=== PATIENT | female | born 1955 | race Caucasian/White ===

== ENCOUNTER 2016-11-28 08:13 | Day surgery (SDC) | payer OTHER ==
[~2016-11-28] VITALS: Ht 162.6 cm; Wt 68.0 kg
[~2016-11-28 08:13] MED LIST: ADVIL200 MG PO; AMLODIPINE BES2.5 MG PO; ASPIRIN E.C.81 M1 PO; DICYCLOMINE HCL20 MG PO; FENOFIBRATE160 M1 PO; IMDUR PO; LEVOTHYROXINE75 MCG PO; LISINOPRIL20 MG PO; LOTREL; ONE DAILY FOR1 EAC1 PO; OXYBUTYNIN CHLOR5 M1 PO; SYNTHROID; TOPROL XL6.25 MG PO; Zocor PO
[2016-11-28 09:03] VITALS: BP 112/69
[2016-11-28] MEDS ORDERED: NORCO 5/3251 TABLET PO (13:51)
[2016-11-28 17:10] VITALS: BP 131/66
== END 2016-11-28 17:30 | disposition home or self-care (01) ==
LOC: SDC 08:13
PROC: 07BH0ZX Excision of Right Inguinal Lymphatic, Open Approach, Diagnostic (ICD-10-PCS; principal; 2016-11-28)
DX: C77.4 Secondary and unspecified malignant neoplasm of inguinal and lower limb lymph nodes (principal); I25.10 Atherosclerotic heart disease of native coronary artery without angina pectoris; K21.9 Gastro-esophageal reflux disease without esophagitis; I10 Essential (primary) hypertension; E78.00 Pure hypercholesterolemia, unspecified; I73.9 Peripheral vascular disease, unspecified; E03.9 Hypothyroidism, unspecified; Z79.82 Long term (current) use of aspirin; Z87.891 Personal history of nicotine dependence; Z88.2 Allergy status to sulfonamides; Z95.0 Presence of cardiac pacemaker; I25.2 Old myocardial infarction; Z86.73 Personal history of transient ischemic attack (TIA), and cerebral infarction without residual deficits
CPT/HCPCS: 88305; J0690; J1170; J2250; J3010

== ENCOUNTER → 2017-01-09 | Outpatient (CLI) | payer OTHER ==
[~2017-01-09] VITALS: Ht 161.3 cm; Wt 66.4 kg
[~2017-01-09] MED LIST changes: +ASPIR 8181 M1 PO; +NORCO 5/3251 TABLET PO; +ONE DAILY FOR1 EAC3 PO
== END | disposition home or self-care (01) ==
LOC: AMB 12:59
DX: D01.3 Carcinoma in situ of anus and anal canal (principal); C77.4 Secondary and unspecified malignant neoplasm of inguinal and lower limb lymph nodes; I25.10 Atherosclerotic heart disease of native coronary artery without angina pectoris; K21.9 Gastro-esophageal reflux disease without esophagitis; I10 Essential (primary) hypertension; E78.5 Hyperlipidemia, unspecified; E03.9 Hypothyroidism, unspecified; I73.9 Peripheral vascular disease, unspecified; Z87.891 Personal history of nicotine dependence; Z79.82 Long term (current) use of aspirin; Z82.49 Family history of ischemic heart disease and other diseases of the circulatory system; Z80.49 Family history of malignant neoplasm of other genital organs; Z80.3 Family history of malignant neoplasm of breast; Z83.3 Family history of diabetes mellitus; Z80.1 Family history of malignant neoplasm of trachea, bronchus and lung; Z82.5 Family history of asthma and other chronic lower respiratory diseases; Z88.2 Allergy status to sulfonamides; Z88.6 Allergy status to analgesic agent; Z88.8 Allergy status to other drugs, medicaments and biological substances
CPT/HCPCS: 88305; 88342 TC; J2405; J2765; J3010

== ENCOUNTER 2017-02-04 22:43 | Inpatient (IN) | payer OTHER ==
[~2017-02-04] VITALS: Ht 162.6 cm; Wt 74.3 kg
[2017-02-04 23:52] LABS: HEMATOCRIT 24.1 % (36.0-46.0); MCHC 34.9 G/DL (30.0-36.0); MCV 88.9 FL (83-99); RBC DIS.WIDTH-CV 11.7 % (11.8-14.6); RBC DIS.WIDTH-SD 37.6 % (39-53); RED BLOOD COUNT 2.71 M/uL (3.80-5.20)
[2017-02-04 23:54] LABS: WHITE BLOOD COUNT 1.3 K/uL (4.1-10.2)
[2017-02-04 23:55] LABS: CHLORIDE 104 mEq/L (99-109); POTASSIUM 4.4 mEq/L (3.7-5.4); SODIUM 136 mEq/L (136-147)
[2017-02-04 23:58] LABS: GLUCOSE 76 mg/dL (70-99)
[2017-02-04 23:59] LABS: ANION GAP 7 MEQ/L (2-14)
[2017-02-05] VITALS (10 sets, daily range): BP systolic 87–127; BP diastolic 44–65
[2017-02-05] LABS: TOTAL BILIRUBIN 0.8 mg/dL (0.0-1.0)
[2017-02-05 00:01] LABS: ALKALINE PHOSPHATASE 68 IU/L (3-129); GFR ESTIMATE (CALCULATED) 38 mL/min/
[2017-02-05 00:02] LABS: UREA NITROGEN (BUN) 21 mg/dL (9-23)
[2017-02-05 00:42] LABS: ABS NEUTROPHIL COUNT 0.9; BAND NEUTROPHILS 1.7 % (0-8.0); EOSINOPHIL ABS CT 0.1; EOSINOPHILS 4.4 % (0-5.0); INSTRUMENT ABS NEUTROPHIL CT 0.9 K/uL; LYMPHOCYTES 24.6 % (15.0-45.0); MEAN PLAT.VOLUME 9.6 uM^3 (9.5-12.4); PLAT.SUFFICIENCY DECREASED; SEG.NEUTROPHILS 68.4 % (46.0-76.0)
[2017-02-05 00:43] LABS: PLATELET COUNT 66 K/uL (156-360)
[2017-02-05 00:54] LABS: ADD MIUA? YES; BILIRUBIN NEGATIVE; BLOOD MODERATE; COLOR YELLOW ((YELLOW)); GLUCOSE (STRIP) NEGATIVE; KETONES NEGATIVE; LEUKOCYTES MODERATE; NITRITE NEGATIVE; PROTEIN (STRIP) NEGATIVE; SPECIFIC GRAVITY 1.011 (1.000-1.030); UROBILINOGEN 0.2 MG/DL (0.2-1.0)
[2017-02-05 01:01] LABS: BACTERIA RARE /HPF; EPITHELIAL CELLS RARE /HPF; MUCUS NONE SEEN /LPF; RED BLOOD CELLS 0-5 /HPF (0-5); UCUL ADDED? NO
[2017-02-05 02:56] LABS: CHLORIDE 106 mEq/L (99-109); POTASSIUM 4.4 mEq/L (3.7-5.4); SODIUM 137 mEq/L (136-147)
[2017-02-05 02:58] LABS: GLUCOSE 73 mg/dL (70-99)
[2017-02-05 02:59] LABS: ANION GAP 9 MEQ/L (2-14)
[2017-02-05 03:01] LABS: GFR ESTIMATE (CALCULATED) 41 mL/min/
[2017-02-05 03:02] LABS: UREA NITROGEN (BUN) 19 mg/dL (9-23)
[2017-02-05 10:02] LABS: METH RESISTANT S AUREUS PCR NEGATIVE (NEGATIVE)
[2017-02-05 10:07] LABS: PROBE CHECK PASS; SPECIMEN PROCESSING CONTROL PASS
[2017-02-05] MEDS ORDERED: ONDANSETRON HCL8 MG PO (15:50)
[2017-02-05] MEDS ORDERED: LORAZEPAM0.5 MG PO (15:51)
[2017-02-05] MEDS ORDERED: OXYCODONE HCL5 MG PO (15:52)
[2017-02-05] MEDS ORDERED: DIPHENOXYLATE/1 EACH PO (15:52)
[2017-02-06] VITALS: BP 115/66
[2017-02-06 04:00] VITALS: BP 106/48
[2017-02-06 05:53] LABS: ANION GAP 9 MEQ/L (2-14); CHLORIDE 108 MEQ/L (99-109); GFR ESTIMATE (CALCULATED) 49 mL/min/; GLUCOSE 69 mg/dL (70-99); POTASSIUM 3.9 MEQ/L (3.7-5.4); SAMPLE HEMOLYSIS CHECK 0; SAMPLE ICTERIC CHECK 0; SAMPLE LIPEMIA CHECK 0; SODIUM 138 MEQ/L (136-147); UREA NITROGEN (BUN) 15 mg/dL (9-23)
[2017-02-06 06:19] LABS: HEMATOCRIT 21.6 % (36.0-46.0); IMM.PLATELET FRACTION 2.6 (1-7); MCH 32.2 PG (29.0-34.0); MCHC 36.6 G/DL (30.0-36.0); MCV 88.2 FL (83-99); PLATELET COUNT 47 K/uL (156-360); RBC DIS.WIDTH-CV 11.8 % (11.8-14.6); RBC DIS.WIDTH-SD 38.2 % (39-53); RED BLOOD COUNT 2.45 M/uL (3.80-5.20)
[2017-02-06 06:22] LABS: WHITE BLOOD COUNT 0.9 K/uL (4.1-10.2)
[2017-02-06 06:51] LABS: ANISOCYTOSIS 1+; HEMATOLOGY COMMENT 1 DIFF ON BUFFY COAT; PLAT.SUFFICIENCY DECREASED
[2017-02-06 08:00] VITALS: BP 94/66
[2017-02-06 09:21] LABS: ABS NEUTROPHIL COUNT 0.4; EOSINOPHIL ABS CT 0.1; INSTRUMENT ABS NEUTROPHIL CT 0.4 K/uL
[2017-02-06 12:00] VITALS: BP 101/52
[2017-02-06 18:12] VITALS: BP 131/63
[2017-02-06 23:41] VITALS: BP 129/68
[2017-02-07 04:02] VITALS: BP 127/63
[2017-02-07 06:45] LABS: MCHC 36.5 G/DL (30.0-36.0); MCV 87.7 FL (83-99); RBC DIS.WIDTH-CV 11.9 % (11.8-14.6); RBC DIS.WIDTH-SD 38.5 % (39-53); RED BLOOD COUNT 2.28 M/uL (3.80-5.20)
[2017-02-07 06:50] LABS: WHITE BLOOD COUNT 0.6 K/uL (4.1-10.2)
[2017-02-07 06:59] LABS: ANION GAP 10 MEQ/L (2-14); CHLORIDE 111 MEQ/L (99-109); GFR ESTIMATE (CALCULATED) > 59 mL/min/; GLUCOSE 40 mg/dL (70-99); POTASSIUM 3.7 MEQ/L (3.7-5.4); SAMPLE HEMOLYSIS CHECK 0; SAMPLE ICTERIC CHECK 0; SAMPLE LIPEMIA CHECK 0; SODIUM 142 MEQ/L (136-147); UREA NITROGEN (BUN) 14 mg/dL (9-23)
[2017-02-07 07:07] LABS: IMM.PLATELET FRACTION 2.2 (1-7); PLAT.SUFFICIENCY DECREASED; PLATELET COUNT 39 K/uL (156-360)
[2017-02-07 08:19] LABS: POINT-OF-CARE METER ID UU13113725
[2017-02-07 08:28] VITALS: BP 124/77
[2017-02-07 09:23] LABS: POINT-OF-CARE METER ID UU13113725
[2017-02-07 18:07] VITALS: BP 145/77
[2017-02-07 20:04] VITALS: BP 121/74
[2017-02-08] VITALS (10 sets, daily range): BP systolic 114–134; BP diastolic 55–71
[2017-02-08 07:04] LABS: ALKALINE PHOSPHATASE 46 IU/L (3-129); ANION GAP 9 MEQ/L (2-14); CHLORIDE 107 MEQ/L (99-109); GFR ESTIMATE (CALCULATED) > 59 mL/min/; SAMPLE HEMOLYSIS CHECK 0; SAMPLE ICTERIC CHECK 0; SAMPLE LIPEMIA CHECK 0; SODIUM 136 MEQ/L (136-147); UREA NITROGEN (BUN) 11 mg/dL (9-23)
[2017-02-08 07:05] LABS: GLUCOSE 84 mg/dL (70-99); TOTAL BILIRUBIN 0.6 MG/DL (0.0-1.0)
[2017-02-08 07:06] LABS: HEMATOCRIT 23.5 % (36.0-46.0); MCH 31.8 PG (29.0-34.0); MCHC 38.7 G/DL (30.0-36.0); RBC DIS.WIDTH-CV 11.7 % (11.8-14.6)
[2017-02-08 07:07] LABS: MCV 82.2 FL (83-99); RED BLOOD COUNT 2.86 M/uL (3.80-5.20); WHITE BLOOD COUNT 0.9 K/uL (4.1-10.2)
[2017-02-08 08:37] LABS: EOSINOPHIL (%) 4.7 % (0-5); HEMATOLOGY COMMENT 1 SMEAR COMPATIBLE; IMM.PLATELET FRACTION 3.4 (1-7); IMMATURE GRANULOCYTE (%) 2.3 % (0.0-0.7); INSTRUMENT ABS NEUTROPHIL CT 0.4 K/uL; LYMPHOCYTE COUNT 0.4 K/uL (1.0-2.8); MEAN PLAT.VOLUME 10.8 uM^3 (9.5-12.4); MONOCYTE (%) 8.1 % (3-12); MONOCYTE COUNT 0.1 K/uL (0-0.8); NEUTROPHIL (%) 44.2 % (45-76); NEUTROPHIL COUNT 0.4 K/uL (1.8-6.4); PLAT.SUFFICIENCY DECREASED
[2017-02-08 08:46] LABS: PLATELET COUNT 28 K/uL (156-360)
[2017-02-09 04:10] VITALS: BP 123/65
[2017-02-09 06:51] LABS: HEMATOCRIT 23.2 % (36.0-46.0); IMM.PLATELET FRACTION 2.9 (1-7); MCH 31.5 PG (29.0-34.0); MCHC 37.1 G/DL (30.0-36.0); MEAN PLAT.VOLUME 9.6 uM^3 (9.5-12.4); PLAT.SUFFICIENCY DECREASED; RBC DIS.WIDTH-CV 12.1 % (11.8-14.6); RBC DIS.WIDTH-SD 37.3 % (39-53); RED BLOOD COUNT 2.73 M/uL (3.80-5.20)
[2017-02-09 06:52] LABS: PLATELET COUNT 22 K/uL (156-360); WHITE BLOOD COUNT 0.8 K/uL (4.1-10.2)
[2017-02-09 07:43] LABS: ANION GAP 7 MEQ/L (2-14); CHLORIDE 111 MEQ/L (99-109); GFR ESTIMATE (CALCULATED) 49 mL/min/; GLUCOSE 84 mg/dL (70-99); MAGNESIUM 1.6 mg/dl (1.3-2.7); POTASSIUM 3.6 MEQ/L (3.7-5.4); SAMPLE HEMOLYSIS CHECK 0; SAMPLE ICTERIC CHECK 0; SAMPLE LIPEMIA CHECK 0; SODIUM 141 MEQ/L (136-147); UREA NITROGEN (BUN) 7 mg/dL (9-23)
[2017-02-09 07:45] VITALS: BP 136/77
[2017-02-09 11:12] VITALS: BP 122/72
[2017-02-09 15:40] VITALS: BP 121/62
[2017-02-09 19:17] VITALS: BP 144/69
[2017-02-09 23:17] VITALS: BP 125/63
[2017-02-10 01:42] LABS: C DIFF TOXIN NEGATIVE (NEGATIVE)
[2017-02-10 01:43] LABS: PROBE CHECK PASS; SPECIMEN PROCESSING CONTROL PASS
[2017-02-10 07:00] LABS: ANION GAP 8 MEQ/L (2-14); CHLORIDE 112 MEQ/L (99-109); GFR ESTIMATE (CALCULATED) 44 mL/min/; GLUCOSE 84 mg/dL (70-99); POTASSIUM 3.3 MEQ/L (3.7-5.4); SAMPLE HEMOLYSIS CHECK 0; SAMPLE ICTERIC CHECK 0; SAMPLE LIPEMIA CHECK 0; SODIUM 140 MEQ/L (136-147); UREA NITROGEN (BUN) 4 mg/dL (9-23)
[2017-02-10 07:09] LABS: HEMATOCRIT 23.2 % (36.0-46.0); MCH 31.8 PG (29.0-34.0); MCHC 37.5 G/DL (30.0-36.0); MCV 84.7 FL (83-99); RBC DIS.WIDTH-CV 12.4 % (11.8-14.6); RBC DIS.WIDTH-SD 37.8 % (39-53); RED BLOOD COUNT 2.74 M/uL (3.80-5.20)
[2017-02-10 07:19] LABS: WHITE BLOOD COUNT 0.8 K/uL (4.1-10.2)
[2017-02-10 07:29] VITALS: BP 111/56
[2017-02-10 08:12] LABS: MEAN PLAT.VOLUME 10.6 uM^3 (9.5-12.4)
[2017-02-10 08:53] LABS: PLATELET COUNT 17 K/uL (156-360)
[2017-02-10 12:24] VITALS: BP 111/56
[2017-02-10 16:02] VITALS: BP 141/69
[2017-02-10 20:50] VITALS: BP 158/86
[2017-02-11 00:50] VITALS: BP 158/86
[2017-02-11 04:05] VITALS: BP 128/70
[2017-02-11 06:55] VITALS: BP 131/62
[2017-02-11 10:27] LABS: HEMATOCRIT 23.3 % (36.0-46.0); MCH 31.6 PG (29.0-34.0); MCHC 36.5 G/DL (30.0-36.0); MCV 86.6 FL (83-99); RBC DIS.WIDTH-CV 12.6 % (11.8-14.6); RBC DIS.WIDTH-SD 39.8 % (39-53); RED BLOOD COUNT 2.69 M/uL (3.80-5.20)
[2017-02-11 10:29] LABS: WHITE BLOOD COUNT 0.9 K/uL (4.1-10.2)
[2017-02-11 10:43] LABS: ANION GAP 6 MEQ/L (2-14); CHLORIDE 110 MEQ/L (99-109); GFR ESTIMATE (CALCULATED) 44 mL/min/; GLUCOSE 81 mg/dL (70-99); POTASSIUM 3.5 MEQ/L (3.7-5.4); SAMPLE HEMOLYSIS CHECK 0; SAMPLE ICTERIC CHECK 0; SAMPLE LIPEMIA CHECK 0; SODIUM 139 MEQ/L (136-147); UREA NITROGEN (BUN) 3 mg/dL (9-23)
[2017-02-11 10:51] LABS: EOSINOPHIL (%) 10.2 % (0-5); EOSINOPHIL COUNT 0.1 K/uL (0-0.3); IMM.PLATELET FRACTION 7.2 (1-7); INSTRUMENT ABS NEUTROPHIL CT 0.2 K/uL; LYMPHOCYTE COUNT 0.4 K/uL (1.0-2.8); MEAN PLAT.VOLUME 11.9 uM^3 (9.5-12.4); MONOCYTE COUNT 0.2 K/uL (0-0.8); NEUTROPHIL (%) 25.1 % (45-76); NEUTROPHIL COUNT 0.2 K/uL (1.8-6.4); PLAT.SUFFICIENCY DECREASED
[2017-02-11 10:56] LABS: PLATELET COUNT 20 K/uL (156-360)
[2017-02-11 15:15] VITALS: BP 135/67
[2017-02-11 20:13] LABS: POINT-OF-CARE METER ID UU13113725
[2017-02-11 20:23] VITALS: BP 139/69
[2017-02-11 22:28] VITALS: BP 140/66
[2017-02-12 01:15] LABS: POINT-OF-CARE METER ID UU13113725
[2017-02-12 03:35] VITALS: BP 117/57
[2017-02-12 06:08] LABS: POINT-OF-CARE METER ID UU13113725
[2017-02-12 06:52] VITALS: BP 109/57
[2017-02-12 10:53] LABS: HEMATOCRIT 24.4 % (36.0-46.0); MCH 30.9 PG (29.0-34.0); MCHC 35.7 G/DL (30.0-36.0); MCV 86.5 FL (83-99); RBC DIS.WIDTH-CV 12.4 % (11.8-14.6); RBC DIS.WIDTH-SD 39.5 % (39-53); RED BLOOD COUNT 2.82 M/uL (3.80-5.20)
[2017-02-12 10:53] LABS: POINT-OF-CARE METER ID UU13113725
[2017-02-12 10:55] LABS: WHITE BLOOD COUNT 0.8 K/uL (4.1-10.2)
[2017-02-12 11:17] LABS: ANION GAP 8 MEQ/L (2-14); CHLORIDE 107 MEQ/L (99-109); GFR ESTIMATE (CALCULATED) 38 mL/min/; GLUCOSE 84 mg/dL (70-99); POTASSIUM 3.5 MEQ/L (3.7-5.4); SAMPLE HEMOLYSIS CHECK 0; SAMPLE ICTERIC CHECK 0; SAMPLE LIPEMIA CHECK 0; SODIUM 141 MEQ/L (136-147); UREA NITROGEN (BUN) 3 mg/dL (9-23)
[2017-02-12 11:20] LABS: ABS NEUTROPHIL COUNT 0.2; ATYPICAL LYMPHOCYTE 1.9 %; BAND NEUTROPHILS 1.9 % (0-8.0); EOSINOPHIL ABS CT 0.1; EOSINOPHILS 10.7 % (0-5.0); IMM.PLATELET FRACTION 5.8 (1-7); INSTRUMENT ABS NEUTROPHIL CT 0.2 K/uL; LYMPHOCYTES 46.6 % (15.0-45.0); MEAN PLAT.VOLUME 11.1 uM^3 (9.5-12.4); PLATELET COUNT 28 K/uL (156-360); SEG.NEUTROPHILS 24.3 % (46.0-76.0); SMUDGE CELLS 16.5
[2017-02-12 11:21] LABS: PLAT.SUFFICIENCY VERY DECREASED
[2017-02-12 15:11] VITALS: BP 101/52
[2017-02-12 16:04] LABS: POINT-OF-CARE METER ID UU13113725
[2017-02-12 20:00] VITALS: BP 110/56
[2017-02-12 21:23] LABS: POINT-OF-CARE METER ID UU13113725
[2017-02-13 00:05] VITALS: BP 108/53
[2017-02-13 08:34] VITALS: BP 131/70
[2017-02-13 10:22] LABS: HEMATOCRIT 23.5 % (36.0-46.0); MCH 30.3 PG (29.0-34.0); MCHC 35.3 G/DL (30.0-36.0); MCV 85.8 FL (83-99); RBC DIS.WIDTH-CV 12.2 % (11.8-14.6); RED BLOOD COUNT 2.74 M/uL (3.80-5.20)
[2017-02-13 10:27] LABS: WHITE BLOOD COUNT 0.8 K/uL (4.1-10.2)
[2017-02-13 10:50] LABS: ANION GAP 7 MEQ/L (2-14); CHLORIDE 106 MEQ/L (99-109); GFR ESTIMATE (CALCULATED) 41 mL/min/; GLUCOSE 82 mg/dL (70-99); POTASSIUM 3.4 MEQ/L (3.7-5.4); SAMPLE HEMOLYSIS CHECK 0; SAMPLE ICTERIC CHECK 0; SAMPLE LIPEMIA CHECK 0; SODIUM 139 MEQ/L (136-147); UREA NITROGEN (BUN) 4 mg/dL (9-23)
[2017-02-13 11:32] LABS: ABS NEUTROPHIL COUNT 0.2; ANISOCYTOSIS 1+; ATYPICAL LYMPHOCYTE 0.9 %; BAND NEUTROPHILS 0.9 % (0-8.0); EOSINOPHIL ABS CT 0.1; EOSINOPHILS 7.1 % (0-5.0); INSTRUMENT ABS NEUTROPHIL CT 0.2 K/uL; LYMPHOCYTES 50.4 % (15.0-45.0); MEAN PLAT.VOLUME 11.4 uM^3 (9.5-12.4); METAMYELOCYTES 2.7 %; MICROCYTOSIS 1+; MYELOCYTES 4.4 %; OVALOCYTES 1+; PLAT.SUFFICIENCY DECREASED; PLATELET COUNT 34 K/uL (156-360); SEG.NEUTROPHILS 29.2 % (46.0-76.0); TEAR DROP CELLS 1+
[2017-02-13] MEDS ORDERED: FLORASTOR250 MG PO (15:10)
[2017-02-13] MEDS ORDERED: LOPERAMIDE2 MG PO (15:10)
[2017-02-13] MEDS ORDERED: AMOXICILLIN500 MG PO (15:10)
[2017-02-13] MEDS ORDERED: FLUCONAZOLE200 MG PO (15:10)
[2017-02-13] MEDS ORDERED: PANTOPRAZOLE SO40 MG PO (15:10)
[2017-02-13] MEDS ORDERED: VALACYCLOVIR500 MG PO (15:10)
[2017-02-13 15:59] VITALS: BP 117/61
== END 2017-02-13 19:02 | disposition home or self-care (01) | DRG 871 ==
LOC: EME → EDBD 22:43 → EME 22:43 → 5EAST 02-05 02:48 → 4WEST 02-05 02:48 → EDOF 02-05 02:48 → 4WEST 02-05 08:32 → 5EAST 02-06 17:44
PROVIDERS: Emergency Medicine; Hospitalist; Internal Medicine; Internal Medicine Gastroenterology; Internal Medicine Hematology & Oncology
PROC: 30233N1 Transfusion of Nonautologous Red Blood Cells into Peripheral Vein, Percutaneous Approach (ICD-10-PCS; principal; 2017-02-08)
DX: A41.9 Sepsis, unspecified organism (principal); D61.810 Antineoplastic chemotherapy induced pancytopenia; T45.1X5A Adverse effect of antineoplastic and immunosuppressive drugs, initial encounter; N18.3 Chronic kidney disease, stage 3 (moderate); I12.9 Hypertensive chronic kidney disease with stage 1 through stage 4 chronic kidney disease, or unspecified chronic kidney disease; M79.7 Fibromyalgia; Z86.73 Personal history of transient ischemic attack (TIA), and cerebral infarction without residual deficits; N39.0 Urinary tract infection, site not specified; R13.10 Dysphagia, unspecified; B37.81 Candidal esophagitis; K12.30 Oral mucositis (ulcerative), unspecified; I25.2 Old myocardial infarction; K52.9 Noninfective gastroenteritis and colitis, unspecified; D70.9 Neutropenia, unspecified; R50.81 Fever presenting with conditions classified elsewhere; E87.6 Hypokalemia; E16.2 Hypoglycemia, unspecified; C21.0 Malignant neoplasm of anus, unspecified; E78.5 Hyperlipidemia, unspecified; E03.9 Hypothyroidism, unspecified; B02.9 Zoster without complications
CPT/HCPCS: 71010; 74177; 74220; 77300; 77338 XS; 77385; 77386; 80048; 80053; 80202; 81003; 82948; 83605; 83735; 85009; 85025; 85027; 86900; 86901; 86920; 87040; 87493; 87641; 93005; 96360; 96361; 99281; 99285; C9113; J0696; J1450; J1644; J1940; J2405; J2543; J3370; J3475; J3480; J7030; J7050; P9016

== ENCOUNTER 2017-03-03 13:54 | Inpatient (IN) | payer OTHER ==
[~2017-03-03] VITALS: Ht 160 cm; Wt 64.2 kg
[~2017-03-03 13:54] MED LIST changes: +AMOXICILLIN500 MG PO; +DIPHENOXYLATE/1 EACH PO; +FLORASTOR250 MG PO; +FLUCONAZOLE200 MG PO; +LOPERAMIDE2 MG PO; +LORAZEPAM0.5 MG PO; +ONDANSETRON HCL8 MG PO; +OXYCODONE HCL5 MG PO; +PANTOPRAZOLE SO40 MG PO; +VALACYCLOVIR500 MG PO
[2017-03-03 17:33] VITALS: BP 114/77
[2017-03-03 18:57] VITALS: BP 148/75
[2017-03-03 19:15] VITALS: BP 150/77
[2017-03-03 22:52] VITALS: BP 101/57
[2017-03-04 02:55] VITALS: BP 105/57
[2017-03-04 06:23] LABS: MCH 30.7 PG (29.0-34.0); MCHC 35.5 G/DL (30.0-36.0); MCV 86.6 FL (83-99); MEAN PLAT.VOLUME 9.1 uM^3 (9.5-12.4); RBC DIS.WIDTH-CV 13.9 % (11.8-14.6); RBC DIS.WIDTH-SD 41.9 % (39-53); RED BLOOD COUNT 2.54 M/uL (3.80-5.20)
[2017-03-04 06:33] LABS: PLATELET COUNT 119 K/uL (156-360); WHITE BLOOD COUNT 1.7 K/uL (4.1-10.2)
[2017-03-04 07:15] LABS: EOSINOPHIL (%) 1.7 % (0-5); HEMATOLOGY COMMENT 1 SMEAR COMPATIBLE; IMMATURE GRANULOCYTE (%) 0.6 % (0.0-0.7); INSTRUMENT ABS NEUTROPHIL CT 1.5 K/uL; LYMPHOCYTE COUNT 0.1 K/uL (1.0-2.8); MONOCYTE (%) 5.8 % (3-12); MONOCYTE COUNT 0.1 K/uL (0-0.8); NEUTROPHIL (%) 87.9 % (45-76); NEUTROPHIL COUNT 1.5 K/uL (1.8-6.4); PLAT.SUFFICIENCY DECREASED
[2017-03-04 07:48] VITALS: BP 101/57
[2017-03-04 09:25] LABS: ALKALINE PHOSPHATASE 62 IU/L (3-129); ANION GAP 7 MEQ/L (2-14); CHLORIDE 98 MEQ/L (99-109); GFR ESTIMATE (CALCULATED) > 59 mL/min/; GLUCOSE 67 mg/dL (70-99); SAMPLE HEMOLYSIS CHECK 0; SAMPLE ICTERIC CHECK 0; SAMPLE LIPEMIA CHECK 0; SODIUM 133 MEQ/L (136-147); UREA NITROGEN (BUN) 6 mg/dL (9-23)
[2017-03-04 09:30] LABS: TOTAL BILIRUBIN 0.5 MG/DL (0.0-1.0)
[2017-03-04 11:22] VITALS: BP 83/48
[2017-03-04] MEDS ORDERED: LOPERAMIDE2 MG PO (13:35)
[2017-03-04] MEDS ORDERED: FLORASTOR250 MG PO (13:36)
[2017-03-04] MEDS ORDERED: PANTOPRAZOLE SO40 MG PO (13:36)
[2017-03-04] MEDS ORDERED: NORVASC2.5 MG PO (13:37)
[2017-03-04] MEDS ORDERED: LISINOPRIL20 MG PO (13:37)
[2017-03-04] MEDS ORDERED: K-DUR20 MEQ PO (13:38)
[2017-03-04 13:55] VITALS: BP 103/57
[2017-03-04 16:20] VITALS: BP 110/60
[2017-03-04 23:00] VITALS: BP 105/59
[2017-03-05] VITALS (14 sets, daily range): BP systolic 104–136; BP diastolic 55–71
[2017-03-05 07:15] LABS: MCH 31.3 PG (29.0-34.0); MCHC 36.1 G/DL (30.0-36.0); MCV 86.5 FL (83-99); MEAN PLAT.VOLUME 9.7 uM^3 (9.5-12.4); PLATELET COUNT 94 K/uL (156-360); RBC DIS.WIDTH-CV 14.1 % (11.8-14.6); RBC DIS.WIDTH-SD 42.1 % (39-53); RED BLOOD COUNT 2.08 M/uL (3.80-5.20); WHITE BLOOD COUNT 1.6 K/uL (4.1-10.2)
[2017-03-05 07:19] LABS: EOSINOPHIL (%) 0 % (0-5); IMMATURE GRANULOCYTE (%) 1.2 % (0.0-0.7); INSTRUMENT ABS NEUTROPHIL CT 1.4 K/uL; LYMPHOCYTE COUNT 0.1 K/uL (1.0-2.8); MONOCYTE (%) 5.5 % (3-12); MONOCYTE COUNT 0.1 K/uL (0-0.8); NEUTROPHIL (%) 87.2 % (45-76); NEUTROPHIL COUNT 1.4 K/uL (1.8-6.4)
[2017-03-05 07:24] LABS: ALKALINE PHOSPHATASE 53 IU/L (3-129); ANION GAP 7 MEQ/L (2-14); CHLORIDE 104 MEQ/L (99-109); GFR ESTIMATE (CALCULATED) > 59 mL/min/; MAGNESIUM 1.4 mg/dl (1.3-2.7); POTASSIUM 3.7 MEQ/L (3.7-5.4); SAMPLE HEMOLYSIS CHECK 0; SAMPLE ICTERIC CHECK 0; SAMPLE LIPEMIA CHECK 0; SODIUM 136 MEQ/L (136-147); TOTAL BILIRUBIN 0.4 MG/DL (0.0-1.0); UREA NITROGEN (BUN) 9 mg/dL (9-23)
[2017-03-05 07:25] LABS: GLUCOSE 133 mg/dL (70-99)
[2017-03-06 07:24] VITALS: BP 126/69
[2017-03-06 08:55] LABS: EOSINOPHIL (%) 0 % (0-5); HEMATOCRIT 27.2 % (36.0-46.0); IMMATURE GRANULOCYTE (%) 3.6 % (0.0-0.7); IMMATURE GRANULOCYTE COUNT 0.2 K/uL; INSTRUMENT ABS NEUTROPHIL CT 3.7 K/uL; LYMPHOCYTE COUNT 0.1 K/uL (1.0-2.8); MCH 29.6 PG (29.0-34.0); MCHC 34.9 G/DL (30.0-36.0); MCV 84.7 FL (83-99); MEAN PLAT.VOLUME 9.6 uM^3 (9.5-12.4); MONOCYTE (%) 5.3 % (3-12); MONOCYTE COUNT 0.2 K/uL (0-0.8); NEUTROPHIL (%) 88.7 % (45-76); NEUTROPHIL COUNT 3.7 K/uL (1.8-6.4); PLATELET COUNT 107 K/uL (156-360); RBC DIS.WIDTH-CV 14.9 % (11.8-14.6); RBC DIS.WIDTH-SD 44.1 % (39-53); RED BLOOD COUNT 3.21 M/uL (3.80-5.20); WHITE BLOOD COUNT 4.2 K/uL (4.1-10.2)
[2017-03-06 09:19] LABS: ANION GAP 8 MEQ/L (2-14); CHLORIDE 105 MEQ/L (99-109); GFR ESTIMATE (CALCULATED) > 59 mL/min/; GLUCOSE 142 mg/dL (70-99); MAGNESIUM 1.4 mg/dl (1.3-2.7); POTASSIUM 3.3 MEQ/L (3.7-5.4); SAMPLE HEMOLYSIS CHECK 0; SAMPLE ICTERIC CHECK 0; SAMPLE LIPEMIA CHECK 0; SODIUM 139 MEQ/L (136-147); UREA NITROGEN (BUN) 8 mg/dL (9-23)
[2017-03-06 15:51] VITALS: BP 128/70
[2017-03-06 23:59] VITALS: BP 124/93
[2017-03-07 08:11] VITALS: BP 158/86
[2017-03-07 08:21] LABS: EOSINOPHIL (%) 0 % (0-5); HEMATOCRIT 24.8 % (36.0-46.0); IMMATURE GRANULOCYTE (%) 2.2 % (0.0-0.7); IMMATURE GRANULOCYTE COUNT 0.1 K/uL; INSTRUMENT ABS NEUTROPHIL CT 1.9 K/uL; LYMPHOCYTE COUNT 0.1 K/uL (1.0-2.8); MCH 30.7 PG (29.0-34.0); MCHC 35.5 G/DL (30.0-36.0); MCV 86.4 FL (83-99); MEAN PLAT.VOLUME 9.6 uM^3 (9.5-12.4); MONOCYTE (%) 10.5 % (3-12); MONOCYTE COUNT 0.2 K/uL (0-0.8); NEUTROPHIL (%) 82.5 % (45-76); NEUTROPHIL COUNT 1.9 K/uL (1.8-6.4); PLATELET COUNT 86 K/uL (156-360); RBC DIS.WIDTH-CV 15.3 % (11.8-14.6); RBC DIS.WIDTH-SD 46.7 % (39-53); RED BLOOD COUNT 2.87 M/uL (3.80-5.20); WHITE BLOOD COUNT 2.3 K/uL (4.1-10.2)
[2017-03-07 08:49] LABS: ANION GAP 7 MEQ/L (2-14); CHLORIDE 108 MEQ/L (99-109); GFR ESTIMATE (CALCULATED) > 59 mL/min/; GLUCOSE 104 mg/dL (70-99); MAGNESIUM 1.3 mg/dl (1.3-2.7); POTASSIUM 3.5 MEQ/L (3.7-5.4); SAMPLE HEMOLYSIS CHECK 0; SAMPLE ICTERIC CHECK 0; SAMPLE LIPEMIA CHECK 0; SODIUM 141 MEQ/L (136-147); UREA NITROGEN (BUN) 9 mg/dL (9-23)
[2017-03-07 13:09] VITALS: BP 155/91
[2017-03-07 14:21] LABS: TROP-I INTERPRETATION NEGATIVE; TROPONIN-I < 0.01 ng/mL (0.0-0.30)
[2017-03-07 18:02] VITALS: BP 135/86
[2017-03-07 19:20] LABS: TROP-I INTERPRETATION NEGATIVE; TROPONIN-I 0.01 ng/mL (0.0-0.30)
[2017-03-07 23:45] VITALS: BP 114/67
[2017-03-08 07:06] LABS: ALKALINE PHOSPHATASE 52 IU/L (3-129); ANION GAP 7 MEQ/L (2-14); CHLORIDE 109 MEQ/L (99-109); GFR ESTIMATE (CALCULATED) > 59 mL/min/; GLUCOSE 99 mg/dL (70-99); POTASSIUM 3.5 MEQ/L (3.7-5.4); SAMPLE HEMOLYSIS CHECK 0; SAMPLE ICTERIC CHECK 0; SAMPLE LIPEMIA CHECK 0; SODIUM 142 MEQ/L (136-147); TOTAL BILIRUBIN 0.4 MG/DL (0.0-1.0); UREA NITROGEN (BUN) 11 mg/dL (9-23)
[2017-03-08 07:35] VITALS: BP 150/86
[2017-03-08 07:37] LABS: HEMATOCRIT 24.9 % (36.0-46.0); MCH 30.1 PG (29.0-34.0); MCHC 34.5 G/DL (30.0-36.0); MCV 87.1 FL (83-99); MEAN PLAT.VOLUME 9.6 uM^3 (9.5-12.4); PLATELET COUNT 87 K/uL (156-360); RBC DIS.WIDTH-CV 15.4 % (11.8-14.6); RBC DIS.WIDTH-SD 45.3 % (39-53); RED BLOOD COUNT 2.86 M/uL (3.80-5.20); WHITE BLOOD COUNT 2.2 K/uL (4.1-10.2)
[2017-03-08 07:59] LABS: ABS NEUTROPHIL COUNT 1.8; ANISOCYTOSIS 1+; BAND NEUTROPHILS 0.9 % (0-8.0); EOSINOPHIL ABS CT 0; EOSINOPHILS 0.9 % (0-5.0); INSTRUMENT ABS NEUTROPHIL CT 1.8 K/uL; LYMPHOCYTES 6.9 % (15.0-45.0); MACROCYTES 1+; MYELOCYTES 1.7 %; NUCLEATED RBC'S 1.7; PLAT.SUFFICIENCY DECREASED; SPHEROCYTES 1+; TOX.VACUOLIZATION 1+; TOXIC GRANULATION 2+
[2017-03-08 08:31] LABS: SEG.NEUTROPHILS 82.7 % (46.0-76.0)
[2017-03-08 22:57] VITALS: BP 139/90
[2017-03-09 06:59] VITALS: BP 112/69
[2017-03-09 13:55] LABS: HEMATOCRIT 27.6 % (36.0-46.0); MCH 30.9 PG (29.0-34.0); MCHC 34.8 G/DL (30.0-36.0); MCV 88.7 FL (83-99); MEAN PLAT.VOLUME 10.1 uM^3 (9.5-12.4); NRBC (%) 0.6 /100 WBC (0-0); PLATELET COUNT 99 K/uL (156-360); RBC DIS.WIDTH-CV 15.9 % (11.8-14.6); RBC DIS.WIDTH-SD 49.1 % (39-53); RED BLOOD COUNT 3.11 M/uL (3.80-5.20); WHITE BLOOD COUNT 3.2 K/uL (4.1-10.2)
[2017-03-09 14:21] LABS: ANION GAP 10 MEQ/L (2-14); CHLORIDE 108 MEQ/L (99-109); GFR ESTIMATE (CALCULATED) > 59 mL/min/; GLUCOSE 92 mg/dL (70-99); POTASSIUM 3.3 MEQ/L (3.7-5.4); SAMPLE HEMOLYSIS CHECK 0; SAMPLE ICTERIC CHECK 0; SAMPLE LIPEMIA CHECK 0; SODIUM 142 MEQ/L (136-147); UREA NITROGEN (BUN) 17 mg/dL (9-23)
[2017-03-09 14:48] LABS: ABS NEUTROPHIL COUNT 2.4; ANISOCYTOSIS 1+; BAND NEUTROPHILS 3.6 % (0-8.0); EOSINOPHIL ABS CT 0; EOSINOPHILS 0.9 % (0-5.0); INSTRUMENT ABS NEUTROPHIL CT 2.3 K/uL; LYMPHOCYTES 12.5 % (15.0-45.0); MACROCYTES 1+; METAMYELOCYTES 3.6 %; MICROCYTOSIS 1+; NUCLEATED RBC'S 0.9; SEG.NEUTROPHILS 71.4 % (46.0-76.0)
[2017-03-09 16:10] VITALS: BP 139/71
[2017-03-09 23:10] VITALS: BP 132/74
[2017-03-10 06:12] LABS: HEMATOCRIT 24.9 % (36.0-46.0); MCH 30.8 PG (29.0-34.0); MCHC 34.5 G/DL (30.0-36.0); MCV 89.2 FL (83-99); MEAN PLAT.VOLUME 10.1 uM^3 (9.5-12.4); PLATELET COUNT 84 K/uL (156-360); RBC DIS.WIDTH-CV 15.8 % (11.8-14.6); RBC DIS.WIDTH-SD 49.5 % (39-53); RED BLOOD COUNT 2.79 M/uL (3.80-5.20); WHITE BLOOD COUNT 2.1 K/uL (4.1-10.2)
[2017-03-10 06:33] LABS: ANION GAP 7 MEQ/L (2-14); CHLORIDE 108 MEQ/L (99-109); GFR ESTIMATE (CALCULATED) > 59 mL/min/; GLUCOSE 85 mg/dL (70-99); MAGNESIUM 1.4 mg/dl (1.3-2.7); SAMPLE HEMOLYSIS CHECK 0; SAMPLE ICTERIC CHECK 0; SAMPLE LIPEMIA CHECK 0; SODIUM 141 MEQ/L (136-147); UREA NITROGEN (BUN) 18 mg/dL (9-23)
[2017-03-10 06:43] LABS: POTASSIUM 4.3 MEQ/L (3.7-5.4)
[2017-03-10 07:03] LABS: ABS NEUTROPHIL COUNT 1.7; ANISOCYTOSIS 1+; EOSINOPHIL ABS CT 0; INSTRUMENT ABS NEUTROPHIL CT 1.6 K/uL; MACROCYTES 1+; PLAT.SUFFICIENCY DECREASED; POLYCHROMASIA 1+
[2017-03-10 07:33] VITALS: BP 149/94
[2017-03-10 15:58] VITALS: BP 149/92
[2017-03-10 23:25] VITALS: BP 158/79
[2017-03-11 06:45] VITALS: BP 137/69
[2017-03-11 14:42] LABS: HEMATOCRIT 27.2 % (36.0-46.0); MCH 31.2 PG (29.0-34.0); MCHC 34.6 G/DL (30.0-36.0); MCV 90.4 FL (83-99); NRBC (%) 0.5 /100 WBC (0-0); PLATELET COUNT 99 K/uL (156-360); RBC DIS.WIDTH-CV 16.1 % (11.8-14.6); RBC DIS.WIDTH-SD 50.8 % (39-53); RED BLOOD COUNT 3.01 M/uL (3.80-5.20); WHITE BLOOD COUNT 3.9 K/uL (4.1-10.2)
[2017-03-11 15:06] LABS: ALKALINE PHOSPHATASE 67 IU/L (3-129); ANION GAP 8 MEQ/L (2-14); CHLORIDE 104 MEQ/L (99-109); GFR ESTIMATE (CALCULATED) > 59 mL/min/; POTASSIUM 4.2 MEQ/L (3.7-5.4); SAMPLE HEMOLYSIS CHECK 0; SAMPLE ICTERIC CHECK 0; SAMPLE LIPEMIA CHECK 0; SODIUM 140 MEQ/L (136-147); UREA NITROGEN (BUN) 20 mg/dL (9-23)
[2017-03-11 15:07] LABS: GLUCOSE 137 mg/dL (70-99); TOTAL BILIRUBIN 0.5 MG/DL (0.0-1.0)
[2017-03-11 16:35] VITALS: BP 161/94
[2017-03-11 18:07] LABS: ANION GAP 10 MEQ/L (2-14); CHLORIDE 100 MEQ/L (99-109); GFR ESTIMATE (CALCULATED) > 59 mL/min/; GLUCOSE 166 mg/dL (70-99); POTASSIUM 3.7 MEQ/L (3.7-5.4); SAMPLE HEMOLYSIS CHECK 0; SAMPLE ICTERIC CHECK 0; SAMPLE LIPEMIA CHECK 0; SODIUM 139 MEQ/L (136-147); UREA NITROGEN (BUN) 21 mg/dL (9-23)
[2017-03-11 18:08] LABS: TROP-I INTERPRETATION NEGATIVE; TROPONIN-I 0.01 ng/mL (0.0-0.30)
[2017-03-11 18:12] LABS: MAGNESIUM 1.7 mg/dl (1.3-2.7)
[2017-03-11 22:55] VITALS: BP 125/93
[2017-03-12 00:05] VITALS: BP 136/70
[2017-03-12 03:40] VITALS: BP 124/67
[2017-03-12 06:11] LABS: ANION GAP 7 MEQ/L (2-14); CHLORIDE 100 MEQ/L (99-109); GFR ESTIMATE (CALCULATED) > 59 mL/min/; GLUCOSE 75 mg/dL (70-99); POTASSIUM 4.1 MEQ/L (3.7-5.4); SAMPLE HEMOLYSIS CHECK 0; SAMPLE ICTERIC CHECK 0; SAMPLE LIPEMIA CHECK 0; SODIUM 142 MEQ/L (136-147); UREA NITROGEN (BUN) 21 mg/dL (9-23)
[2017-03-12 07:48] VITALS: BP 129/63
[2017-03-12 12:03] VITALS: BP 125/65
[2017-03-12 16:27] VITALS: BP 135/65
[2017-03-12 19:15] VITALS: BP 126/66
[2017-03-12 20:49] LABS: ADD MIUA? NO; BILIRUBIN NEGATIVE; BLOOD NEGATIVE; COLOR STRAW ((YELLOW)); GLUCOSE (STRIP) NEGATIVE; KETONES NEGATIVE; LEUKOCYTES NEGATIVE; NITRITE NEGATIVE; PROTEIN (STRIP) NEGATIVE; UCUL ADDED? NO; UROBILINOGEN 0.2 MG/DL (0.2-1.0)
[2017-03-13] VITALS (7 sets, daily range): BP systolic 99–130; BP diastolic 54–81
[2017-03-13 06:16] LABS: ANION GAP 5 MEQ/L (2-14); CHLORIDE 96 MEQ/L (99-109); GFR ESTIMATE (CALCULATED) > 59 mL/min/; GLUCOSE 88 mg/dL (70-99); POTASSIUM 4.3 MEQ/L (3.7-5.4); SAMPLE HEMOLYSIS CHECK 0; SAMPLE ICTERIC CHECK 0; SAMPLE LIPEMIA CHECK 0; SODIUM 138 MEQ/L (136-147); UREA NITROGEN (BUN) 22 mg/dL (9-23)
[2017-03-14 04:00] VITALS: BP 133/67
[2017-03-14 05:01] LABS: CHLORIDE 93 mEq/L (99-109); POTASSIUM 4.2 mEq/L (3.7-5.4); SODIUM 139 mEq/L (136-147)
[2017-03-14 05:03] LABS: GLUCOSE 80 mg/dL (70-99)
[2017-03-14 05:04] LABS: ANION GAP 8 MEQ/L (2-14)
[2017-03-14 05:07] LABS: GFR ESTIMATE (CALCULATED) > 59 mL/min/
[2017-03-14 05:08] LABS: UREA NITROGEN (BUN) 24 mg/dL (9-23)
[2017-03-14 08:16] VITALS: BP 153/89
[2017-03-14] MEDS ORDERED: LOPRESSOR25 MG PO (11:57)
[2017-03-14] MEDS ORDERED: FUROSEMIDE20 MG PO (11:58)
[2017-03-14] MEDS ORDERED: FLORASTOR250 MG PO (11:59)
[2017-03-14] MEDS ORDERED: OXYCODONE HCL5 MG PO (12:00)
[2017-03-14] MEDS ORDERED: PANTOPRAZOLE SO40 MG PO (12:09)
[2017-03-14] MEDS ORDERED: PREDNISONE10 MG PO (12:09)
[2017-03-14 12:16] VITALS: BP 140/71
== END 2017-03-14 17:57 | disposition home health service (06) | DRG 393 ==
LOC: EME 13:54 → 5EAST 16:00 → 4EAST 16:00 → EDOF 16:00 → ENRESERV 16:02 → 5EAST 17:29 → ENRESERV 03-11 17:57 → 5EAST 03-11 17:57 → ENRESERV 03-11 18:14 → 4EAST 03-11 20:41
PROVIDERS: Hospitalist; Internal Medicine; Student in an Organized Health Care Education/Training Program
PROC: 30233N1 Transfusion of Nonautologous Red Blood Cells into Peripheral Vein, Percutaneous Approach (ICD-10-PCS; principal; 2017-03-05)
DX: K52.0 Gastroenteritis and colitis due to radiation (principal); A09 Infectious gastroenteritis and colitis, unspecified; D61.810 Antineoplastic chemotherapy induced pancytopenia; I50.23 Acute on chronic systolic (congestive) heart failure; T45.1X5A Adverse effect of antineoplastic and immunosuppressive drugs, initial encounter; I48.0 Paroxysmal atrial fibrillation; Z95.0 Presence of cardiac pacemaker; E87.6 Hypokalemia; I25.10 Atherosclerotic heart disease of native coronary artery without angina pectoris; E86.0 Dehydration; E78.5 Hyperlipidemia, unspecified; C21.0 Malignant neoplasm of anus, unspecified; C77.4 Secondary and unspecified malignant neoplasm of inguinal and lower limb lymph nodes; Y84.2 Radiological procedure and radiotherapy as the cause of abnormal reaction of the patient, or of later complication, without mention of misadventure at the time of the procedure; I42.9 Cardiomyopathy, unspecified; K12.30 Oral mucositis (ulcerative), unspecified; R50.9 Fever, unspecified
CPT/HCPCS: 36415; 36591; 74000; 77336; 77385; 77386; 80048; 80048 91; 80053; 81003; 82150; 83605; 83690; 83735; 83880; 84100; 84484; 85025; 85027; 86480 90; 86900; 86901; 86920; 87040; 87070; 87177; 87205; 87493; 87506; 93005; 93306; 96365; 96366; 99281; 99285; J0133; J1644; J1940; J1956; J2270; J2405; J2765; J2920; J3475; J3480; J7030; J7042; J7050; J7512; P9016; S0030

== ENCOUNTER 2017-03-22 11:26 | Inpatient (IN) | payer OTHER ==
[~2017-03-22] VITALS: Ht 160 cm; Wt 54.4 kg
[~2017-03-22 11:26] MED LIST changes: +FUROSEMIDE20 MG PO; +K-DUR20 MEQ PO; +LOPRESSOR25 MG PO; +NORVASC2.5 MG PO; +PREDNISONE10 MG PO
[2017-03-22 12:44] LABS: HEMATOCRIT 27.1 % (36.0-46.0); MCH 30.8 PG (29.0-34.0); MCHC 36.2 G/DL (30.0-36.0); MCV 85.2 FL (83-99); MEAN PLAT.VOLUME 9.4 uM^3 (9.5-12.4); PLATELET COUNT 84 K/uL (156-360); RBC DIS.WIDTH-CV 14.7 % (11.8-14.6); RBC DIS.WIDTH-SD 41.9 % (39-53); RED BLOOD COUNT 3.18 M/uL (3.80-5.20); WHITE BLOOD COUNT 3.1 K/uL (4.1-10.2)
[2017-03-22 12:57] LABS: CHLORIDE 91 mEq/L (99-109); POTASSIUM 3.4 mEq/L (3.7-5.4)
[2017-03-22 12:59] LABS: GLUCOSE 69 mg/dL (70-99)
[2017-03-22 13:00] LABS: ANION GAP 10 MEQ/L (2-14)
[2017-03-22 13:03] LABS: GFR ESTIMATE (CALCULATED) > 59 mL/min/
[2017-03-22 13:04] LABS: UREA NITROGEN (BUN) 11 mg/dL (9-23)
[2017-03-22 13:05] LABS: SODIUM 119 mEq/L (136-147)
[2017-03-22 13:09] LABS: TROP-I INTERPRETATION NEGATIVE; TROPONIN-I 0.15 ng/mL (0.0-0.30)
[2017-03-22 14:21] LABS: ADD MIUA? YES; BILIRUBIN NEGATIVE; BLOOD NEGATIVE; COLOR YELLOW ((YELLOW)); GLUCOSE (STRIP) NEGATIVE; KETONES NEGATIVE; LEUKOCYTES LARGE; NITRITE NEGATIVE; PROTEIN (STRIP) NEGATIVE; SPECIFIC GRAVITY 1.011 (1.000-1.030); UROBILINOGEN 0.2 MG/DL (0.2-1.0)
[2017-03-22] MEDS ORDERED: PREDNISONE10 MG PO (14:30)
[2017-03-22] MEDS ORDERED: LOMOTIL TABLET1 EACH PO (14:32)
[2017-03-22 14:33] LABS: BACTERIA RARE /HPF; EPITHELIAL CELLS RARE /HPF; MUCUS TRACE /LPF; RED BLOOD CELLS 0-5 /HPF (0-5); UCUL ADDED? YES; WHITE BLOOD CELLS 40-50 /HPF (0-5)
[2017-03-22] MEDS ORDERED: IBUPROFEN200 M1 PO (14:37)
[2017-03-22] MEDS ORDERED: ATIVAN0.5 MG PO (14:37)
[2017-03-22 17:31] VITALS: BP 115/58
[2017-03-22 18:40] LABS: TROP-I INTERPRETATION NEGATIVE; TROPONIN-I < 0.01 ng/mL (0.0-0.30)
[2017-03-22 19:07] VITALS: BP 155/62
[2017-03-22 22:30] VITALS: BP 104/55
[2017-03-22 23:30] VITALS: BP 87/50
[2017-03-22 23:58] LABS: METH RESISTANT S AUREUS PCR NEGATIVE (NEGATIVE)
[2017-03-22 23:59] LABS: PROBE CHECK PASS; SPECIMEN PROCESSING CONTROL PASS
[2017-03-23] VITALS (10 sets, daily range): BP systolic 81–114; BP diastolic 45–60
[2017-03-23 00:53] LABS: CHLORIDE 92 mEq/L (99-109); POTASSIUM 3.9 mEq/L (3.7-5.4); SODIUM 121 mEq/L (136-147)
[2017-03-23 00:54] LABS: GLUCOSE 84 mg/dL (70-99)
[2017-03-23 00:56] LABS: ANION GAP 7 MEQ/L (2-14)
[2017-03-23 00:58] LABS: GFR ESTIMATE (CALCULATED) > 59 mL/min/
[2017-03-23 00:59] LABS: UREA NITROGEN (BUN) 10 mg/dL (9-23)
[2017-03-23 06:27] LABS: MCH 31.8 PG (29.0-34.0); MCHC 36.8 G/DL (30.0-36.0); MCV 86.5 FL (83-99); MEAN PLAT.VOLUME 9.7 uM^3 (9.5-12.4); PLATELET COUNT 72 K/uL (156-360); RBC DIS.WIDTH-CV 15.5 % (11.8-14.6); RBC DIS.WIDTH-SD 43.9 % (39-53); RED BLOOD COUNT 2.89 M/uL (3.80-5.20)
[2017-03-23 06:33] LABS: WHITE BLOOD COUNT 1.9 K/uL (4.1-10.2)
[2017-03-23 06:37] LABS: ANION GAP 5 MEQ/L (2-14); CHLORIDE 95 MEQ/L (99-109); GFR ESTIMATE (CALCULATED) > 59 mL/min/; GLUCOSE 85 mg/dL (70-99); POTASSIUM 3.8 MEQ/L (3.7-5.4); SAMPLE HEMOLYSIS CHECK 0; SAMPLE ICTERIC CHECK 0; SAMPLE LIPEMIA CHECK 0; SODIUM 125 MEQ/L (136-147); UREA NITROGEN (BUN) 10 mg/dL (9-23)
[2017-03-23 12:51] LABS: ANION GAP 7 MEQ/L (2-14); CHLORIDE 102 MEQ/L (99-109); GFR ESTIMATE (CALCULATED) > 59 mL/min/; GLUCOSE 69 mg/dL (70-99); POTASSIUM 3.9 MEQ/L (3.7-5.4); SAMPLE HEMOLYSIS CHECK 0; SAMPLE ICTERIC CHECK 0; SAMPLE LIPEMIA CHECK 0; SODIUM 128 MEQ/L (136-147); UREA NITROGEN (BUN) 9 mg/dL (9-23)
[2017-03-23 14:26] LABS: MAGNESIUM 1.5 mg/dl (1.3-2.7)
[2017-03-23 18:01] LABS: HEMATOCRIT 24.5 % (36.0-46.0); IMMATURE GRANULOCYTE (%) 0.5 % (0.0-0.7); INSTRUMENT ABS NEUTROPHIL CT 1.5 K/uL; LYMPHOCYTE COUNT 0.2 K/uL (1.0-2.8); MCH 30.6 PG (29.0-34.0); MCHC 35.1 G/DL (30.0-36.0); MCV 87.2 FL (83-99); MEAN PLAT.VOLUME 9.4 uM^3 (9.5-12.4); MONOCYTE (%) 12.8 % (3-12); MONOCYTE COUNT 0.3 K/uL (0-0.8); NEUTROPHIL COUNT 1.5 K/uL (1.8-6.4); PLATELET COUNT 71 K/uL (156-360); RBC DIS.WIDTH-CV 16.3 % (11.8-14.6); RBC DIS.WIDTH-SD 45.5 % (39-53); RED BLOOD COUNT 2.81 M/uL (3.80-5.20)
[2017-03-23 18:59] LABS: ANION GAP 6 MEQ/L (2-14); CHLORIDE 94 MEQ/L (99-109); GFR ESTIMATE (CALCULATED) > 59 mL/min/; GLUCOSE 75 mg/dL (70-99); POTASSIUM 4.2 MEQ/L (3.7-5.4); SAMPLE HEMOLYSIS CHECK 0; SAMPLE ICTERIC CHECK 0; SAMPLE LIPEMIA CHECK 0; SODIUM 123 MEQ/L (136-147); UREA NITROGEN (BUN) 9 mg/dL (9-23)
[2017-03-24] VITALS (12 sets, daily range): BP systolic 89–122; BP diastolic 55–80
[2017-03-24 00:54] LABS: CHLORIDE 96 mEq/L (99-109); POTASSIUM 4.7 mEq/L (3.7-5.4); SODIUM 127 mEq/L (136-147)
[2017-03-24 00:55] LABS: GLUCOSE 78 mg/dL (70-99)
[2017-03-24 00:57] LABS: ANION GAP 7 MEQ/L (2-14)
[2017-03-24 00:59] LABS: GFR ESTIMATE (CALCULATED) > 59 mL/min/
[2017-03-24 01:00] LABS: UREA NITROGEN (BUN) 8 mg/dL (9-23)
[2017-03-24 06:17] LABS: EOSINOPHIL (%) 1.5 % (0-5); HEMATOCRIT 24.3 % (36.0-46.0); LYMPHOCYTE COUNT 0.2 K/uL (1.0-2.8); MCH 31.8 PG (29.0-34.0); MCHC 36.2 G/DL (30.0-36.0); MCV 87.7 FL (83-99); MEAN PLAT.VOLUME 9.7 uM^3 (9.5-12.4); MONOCYTE (%) 14.6 % (3-12); MONOCYTE COUNT 0.2 K/uL (0-0.8); NEUTROPHIL (%) 72.2 % (45-76); PLATELET COUNT 74 K/uL (156-360); RBC DIS.WIDTH-CV 16.3 % (11.8-14.6); RED BLOOD COUNT 2.77 M/uL (3.80-5.20)
[2017-03-24 06:25] LABS: WHITE BLOOD COUNT 1.4 K/uL (4.1-10.2)
[2017-03-24 07:03] LABS: ANION GAP 6 MEQ/L (2-14); CHLORIDE 96 MEQ/L (99-109); GFR ESTIMATE (CALCULATED) > 59 mL/min/; GLUCOSE 79 mg/dL (70-99); POTASSIUM 4.2 MEQ/L (3.7-5.4); SAMPLE HEMOLYSIS CHECK 0; SAMPLE ICTERIC CHECK 0; SAMPLE LIPEMIA CHECK 0; SODIUM 128 MEQ/L (136-147); UREA NITROGEN (BUN) 8 mg/dL (9-23)
[2017-03-24 07:06] LABS: MAGNESIUM 1.9 mg/dl (1.3-2.7)
[2017-03-24 14:10] LABS: ANION GAP 5 MEQ/L (2-14); CHLORIDE 96 MEQ/L (99-109); GFR ESTIMATE (CALCULATED) > 59 mL/min/; GLUCOSE 79 mg/dL (70-99); POTASSIUM 4.3 MEQ/L (3.7-5.4); SAMPLE HEMOLYSIS CHECK 0; SAMPLE ICTERIC CHECK 0; SAMPLE LIPEMIA CHECK 0; SODIUM 127 MEQ/L (136-147); UREA NITROGEN (BUN) 8 mg/dL (9-23)
[2017-03-24 22:21] LABS: ANION GAP 7 MEQ/L (2-14); CHLORIDE 96 MEQ/L (99-109); GFR ESTIMATE (CALCULATED) > 59 mL/min/; GLUCOSE 83 mg/dL (70-99); POTASSIUM 3.8 MEQ/L (3.7-5.4); SAMPLE HEMOLYSIS CHECK 0; SAMPLE ICTERIC CHECK 0; SAMPLE LIPEMIA CHECK 0; SODIUM 127 MEQ/L (136-147); UREA NITROGEN (BUN) 8 mg/dL (9-23)
[2017-03-25] VITALS: BP 107/58
[2017-03-25 04:00] VITALS: BP 112/57
[2017-03-25 06:33] LABS: ANION GAP 4 MEQ/L (2-14); CHLORIDE 97 MEQ/L (99-109); GFR ESTIMATE (CALCULATED) > 59 mL/min/; GLUCOSE 77 mg/dL (70-99); MAGNESIUM 1.7 mg/dl (1.3-2.7); POTASSIUM 4.2 MEQ/L (3.7-5.4); SAMPLE HEMOLYSIS CHECK 0; SAMPLE ICTERIC CHECK 0; SAMPLE LIPEMIA CHECK 0; SODIUM 127 MEQ/L (136-147); UREA NITROGEN (BUN) 7 mg/dL (9-23); URIC ACID 2.1 mg/dL (3.1-9.2)
[2017-03-25 06:36] LABS: EOSINOPHIL (%) 2.9 % (0-5); HEMATOCRIT 23.6 % (36.0-46.0); IMMATURE GRANULOCYTE (%) 0.7 % (0.0-0.7); INSTRUMENT ABS NEUTROPHIL CT 0.9 K/uL; LYMPHOCYTE COUNT 0.2 K/uL (1.0-2.8); MCH 31.8 PG (29.0-34.0); MCV 88.4 FL (83-99); MEAN PLAT.VOLUME 9.4 uM^3 (9.5-12.4); MONOCYTE (%) 15.4 % (3-12); MONOCYTE COUNT 0.2 K/uL (0-0.8); NEUTROPHIL (%) 66.3 % (45-76); NEUTROPHIL COUNT 0.9 K/uL (1.8-6.4); PLATELET COUNT 68 K/uL (156-360); RBC DIS.WIDTH-CV 16.7 % (11.8-14.6); RBC DIS.WIDTH-SD 49.7 % (39-53); RED BLOOD COUNT 2.67 M/uL (3.80-5.20)
[2017-03-25 07:00] LABS: WHITE BLOOD COUNT 1.4 K/uL (4.1-10.2)
[2017-03-25 09:00] VITALS: BP 114/70
[2017-03-25 09:46] LABS: HPCA INDEX 0.07
[2017-03-25 12:47] VITALS: BP 95/57
[2017-03-25 15:14] VITALS: BP 112/56
[2017-03-25 20:20] VITALS: BP 107/55
[2017-03-26 00:48] VITALS: BP 115/55
[2017-03-26 05:09] VITALS: BP 107/58
[2017-03-26 06:49] LABS: EOSINOPHIL (%) 2.6 % (0-5); LYMPHOCYTE COUNT 0.3 K/uL (1.0-2.8); MCH 32.1 PG (29.0-34.0); MCHC 35.8 G/DL (30.0-36.0); MCV 89.6 FL (83-99); MEAN PLAT.VOLUME 9.7 uM^3 (9.5-12.4); MONOCYTE (%) 15.9 % (3-12); MONOCYTE COUNT 0.2 K/uL (0-0.8); NEUTROPHIL (%) 64.2 % (45-76); PLATELET COUNT 74 K/uL (156-360); RBC DIS.WIDTH-CV 16.7 % (11.8-14.6); RBC DIS.WIDTH-SD 49.1 % (39-53); RED BLOOD COUNT 2.68 M/uL (3.80-5.20)
[2017-03-26 06:55] LABS: WHITE BLOOD COUNT 1.5 K/uL (4.1-10.2)
[2017-03-26 07:03] LABS: ANION GAP 4 MEQ/L (2-14); CHLORIDE 95 MEQ/L (99-109); GFR ESTIMATE (CALCULATED) > 59 mL/min/; GLUCOSE 68 mg/dL (70-99); MAGNESIUM 1.7 mg/dl (1.3-2.7); POTASSIUM 4.5 MEQ/L (3.7-5.4); SAMPLE HEMOLYSIS CHECK 0; SAMPLE ICTERIC CHECK 0; SAMPLE LIPEMIA CHECK 0; SODIUM 127 MEQ/L (136-147); UREA NITROGEN (BUN) 8 mg/dL (9-23)
[2017-03-26 07:04] LABS: ABS NEUTROPHIL COUNT 1.2; ANISOCYTOSIS 2+; ATYPICAL LYMPHOCYTE 1.8 %; BAND NEUTROPHILS 9.3 % (0-8.0); EOSINOPHIL ABS CT 0; EOSINOPHILS 0.9 % (0-5.0); LYMPHOCYTES 10.2 % (15.0-45.0); MACROCYTES 1+; MICROCYTOSIS 1+; PLAT.SUFFICIENCY DECREASED; SEG.NEUTROPHILS 71.3 % (46.0-76.0)
[2017-03-26 07:05] VITALS: BP 105/56
[2017-03-26 11:40] VITALS: BP 102/58
[2017-03-26 14:40] VITALS: BP 110/60
[2017-03-26 19:20] VITALS: BP 112/55
[2017-03-27 00:41] VITALS: BP 103/61
[2017-03-27 04:40] VITALS: BP 97/61
[2017-03-27 05:05] LABS: CHLORIDE 93 mEq/L (99-109); POTASSIUM 4.6 mEq/L (3.7-5.4); SODIUM 126 mEq/L (136-147)
[2017-03-27 05:08] LABS: ANION GAP 7 MEQ/L (2-14); GLUCOSE 86 mg/dL (70-99)
[2017-03-27 05:11] LABS: GFR ESTIMATE (CALCULATED) > 59 mL/min/; UREA NITROGEN (BUN) 10 mg/dL (9-23)
[2017-03-27 05:30] LABS: HEMATOCRIT 25.7 % (36.0-46.0); MCH 30.6 PG (29.0-34.0); MCHC 34.6 G/DL (30.0-36.0); MCV 88.3 FL (83-99); MEAN PLAT.VOLUME 9.8 uM^3 (9.5-12.4); PLATELET COUNT 93 K/uL (156-360); RBC DIS.WIDTH-CV 16.5 % (11.8-14.6); RBC DIS.WIDTH-SD 49.9 % (39-53); RED BLOOD COUNT 2.91 M/uL (3.80-5.20)
[2017-03-27 05:31] LABS: WHITE BLOOD COUNT 1.6 K/uL (4.1-10.2)
[2017-03-27 07:10] VITALS: BP 98/58
[2017-03-27 12:00] VITALS: BP 100/61
[2017-03-27 20:09] VITALS: BP 105/70
[2017-03-27 23:48] VITALS: BP 97/55
[2017-03-28 04:00] VITALS: BP 109/58
[2017-03-28 07:57] VITALS: BP 94/56
[2017-03-28 08:35] LABS: EOSINOPHIL (%) 0.6 % (0-5); HEMATOCRIT 25.6 % (36.0-46.0); IMMATURE GRANULOCYTE (%) 0.6 % (0.0-0.7); INSTRUMENT ABS NEUTROPHIL CT 1.1 K/uL; LYMPHOCYTE COUNT 0.4 K/uL (1.0-2.8); MCH 30.5 PG (29.0-34.0); MCHC 33.6 G/DL (30.0-36.0); MCV 90.8 FL (83-99); MEAN PLAT.VOLUME 9.8 uM^3 (9.5-12.4); MONOCYTE (%) 10.9 % (3-12); MONOCYTE COUNT 0.2 K/uL (0-0.8); NEUTROPHIL (%) 65.5 % (45-76); NEUTROPHIL COUNT 1.1 K/uL (1.8-6.4); PLATELET COUNT 90 K/uL (156-360); RBC DIS.WIDTH-CV 17.2 % (11.8-14.6); RBC DIS.WIDTH-SD 53.4 % (39-53); RED BLOOD COUNT 2.82 M/uL (3.80-5.20)
[2017-03-28 08:36] LABS: WHITE BLOOD COUNT 1.7 K/uL (4.1-10.2)
[2017-03-28 08:58] LABS: ANION GAP 7 MEQ/L (2-14); CHLORIDE 101 MEQ/L (99-109); GFR ESTIMATE (CALCULATED) > 59 mL/min/; GLUCOSE 112 mg/dL (70-99); POTASSIUM 3.7 MEQ/L (3.7-5.4); SAMPLE HEMOLYSIS CHECK 0; SAMPLE ICTERIC CHECK 0; SAMPLE LIPEMIA CHECK 0; SODIUM 136 MEQ/L (136-147); UREA NITROGEN (BUN) 16 mg/dL (9-23)
[2017-03-28 09:51] LABS: MAGNESIUM 2.2 mg/dl (1.3-2.7)
[2017-03-28 11:43] VITALS: BP 114/56
[2017-03-28] MEDS ORDERED: PREDNISONE10 MG PO (13:08)
[2017-03-29 08:49] LABS: ADRENOCORTICOTROPIC HORMONE+ 7 pg/mL (6-50)
== END 2017-03-28 15:11 | disposition home health service (06) | DRG 640 ==
LOC: EME 11:26 → 4WEST 13:35 → 5EAST 13:35 → 4EAST 13:35 → EDOF 13:35 → CANRESERV 13:40 → ENRESERV 13:40 → EDOF 13:46 → ENRESERV 14:04 → 5EAST 16:38 → ENRESERV 20:51 → 4WEST 22:24 → ENRESERV 03-25 09:10 → 4EAST 03-25 11:56 → ENRESERV 03-28 09:29 → CANRESERV 03-28 09:45 → 4EAST 03-28 15:11
PROVIDERS: Hospitalist; Internal Medicine; Internal Medicine Medical Oncology; Internal Medicine Nephrology; Nurse Practitioner Family
DX: E87.1 Hypo-osmolality and hyponatremia (principal); D61.810 Antineoplastic chemotherapy induced pancytopenia; E43 Unspecified severe protein-calorie malnutrition; C21.8 Malignant neoplasm of overlapping sites of rectum, anus and anal canal; I50.22 Chronic systolic (congestive) heart failure; I42.9 Cardiomyopathy, unspecified; E27.40 Unspecified adrenocortical insufficiency; K52.0 Gastroenteritis and colitis due to radiation; E03.9 Hypothyroidism, unspecified; I48.0 Paroxysmal atrial fibrillation; I25.10 Atherosclerotic heart disease of native coronary artery without angina pectoris; I11.0 Hypertensive heart disease with heart failure; T50.1X5A Adverse effect of loop [high-ceiling] diuretics, initial encounter; E87.6 Hypokalemia; E86.1 Hypovolemia; E86.0 Dehydration; E83.51 Hypocalcemia; E83.39 Other disorders of phosphorus metabolism; E78.5 Hyperlipidemia, unspecified; M79.7 Fibromyalgia; T50.8X5A Adverse effect of diagnostic agents, initial encounter; I95.9 Hypotension, unspecified; I25.2 Old myocardial infarction; Z95.0 Presence of cardiac pacemaker; Z92.3 Personal history of irradiation; Z87.442 Personal history of urinary calculi; Z86.73 Personal history of transient ischemic attack (TIA), and cerebral infarction without residual deficits; Z92.21 Personal history of antineoplastic chemotherapy; Z90.49 Acquired absence of other specified parts of digestive tract; Z87.891 Personal history of nicotine dependence; Z80.49 Family history of malignant neoplasm of other genital organs
CPT/HCPCS: 71020; 80048; 80048 91; 80400; 81003; 82024 90; 82040; 82085 90; 82533 91; 82607; 83605; 83735; 83935; 84100; 84244 90; 84295; 84300; 84484; 84550; 85025; 85027; 86803; 87086; 87641; 93005; 99281; 99284; J0834; J1650; J2405; J3475; J7030; J7050; J7512